=== PATIENT | male | born 1970 | race Caucasian/White ===

== ENCOUNTER → 2019-01-16 | Outpatient (CLI) | payer OTHER | LOC: COL.RAD 09:11 | DX: Z01.818 Encounter for other preprocedural examination (principal); S32.019A Unspecified fracture of first lumbar vertebra, initial encounter for closed fracture; M47.816 Spondylosis without myelopathy or radiculopathy, lumbar region; M48.061 Spinal stenosis, lumbar region without neurogenic claudication; W17.89XA Other fall from one level to another, initial encounter; Y92.89 Other specified places as the place of occurrence of the external cause ==